=== PATIENT | female | born 1960 | race Caucasian/White ===

== ENCOUNTER → 2018-04-17 | Outpatient (REF) ==
--- NOTE | 2018-04-17 15:13 | EKG ---
[facility] PATIENT NAME: ANA MARIA KHANNA : [id number] MR: [id number] V: [id number] EXAM DATE: ORDERING PHYSICIAN: KERA ANTONIO TECHNOLOGIST: DIANA Test Reason : CP Blood Pressure : / mmHG Vent. Rate : 068 BPM Atrial Rate : 068 BPM P-R Int : 152 ms QRS Dur : 086 ms QT Int : 428 ms P-R-T Axes : 058 030 054 degrees QTc Int : 455 ms Normal sinus rhythm Diffuse, non-specific, T flattening No previous ECGs available Confirmed by BALDO ROQUE ([id number]) on 04/17/2018 6:17:03 PM Referred By: Lupe ANTONIO Confirmed By:BALDO ROQUE
== END ==
LOC: RESP 14:54
PROVIDERS: ATTEND Registered Nurse Psychiatric/Mental Health
DX: R07.9 Chest pain, unspecified (principal)
CPT/HCPCS: 93005

== ENCOUNTER → 2018-07-21 | Outpatient (CLI) | payer SELFPAY ==
--- NOTE | 2018-07-21 15:20 | RADIOLOGY IMAGING REPORT ---
FACILITY: PATIENT NAME: Adeline Beaulieu : 1960 MR: [id number] V: [id number] EXAM DATE: ORDERING PHYSICIAN: AL FABIAN TECHNOLOGIST: Location: [facility] [place] Patient: Adeline Beaulieu : 1960 Visit/Account:[id number] Date of Sevice: 07/21/2018 Left hip, two views Indication: Pain after injury Comparison: None available Findings: Mild sclerosis is noted involving the superior aspect of the acetabulum and a faint linear lucency is also noted. The hip is otherwise intact. Mild degenerative changes are present and a bob nt linear lucency is noted along the lateral aspect of the superior acetabulum.. Mild degenerative changes left hip joint noted The pelvis is otherwise intact. IMPRESSION: 1. Mild sclerosis is noted along the superior acetabulum on the left. In addition, a faint linear l ucency is noted along the lateral aspect of the superior acetabulum. While this may be related to un derlying degenerative change, subtle subacute fracture is not excluded. If clinically indicated, eit her CT or MRI may be of benefit. Results were discussed with AL FABIAN at 07/21/2018 3:16 PM. Report Dictated By: Rafael Johsnton at 07/21/2018 3:04 PM Report E-Signed By: Rafael Johnston at 07/21/2018 3:16 PM WSN:[id number]
== END ==
LOC: RAD 14:09
PROVIDERS: ATTEND Family Medicine
DX: G35 Multiple sclerosis (principal); M19.90 Unspecified osteoarthritis, unspecified site

== ENCOUNTER → 2019-07-02 | Outpatient (CLI) | payer SELFPAY ==
--- NOTE | 2019-07-02 15:20 | RADIOLOGY IMAGING REPORT ---
FACILITY: [facility] - [place] PATIENT NAME: Adeline Beaulieu : 1960 MR: [id number] V: [id number] EXAM DATE: ORDERING PHYSICIAN: TOBI GALLO TECHNOLOGIST: Location: Patient: Adeline Beaulieu : 1960 Visit/Account:[id number] Date of Sevice: 07/02/2019 FOOT 3 VIEWS RIGHT History: Right foot joint pain. Comparison study: None. Findings: There is no fracture involving the right foot. There are no significant findings of arthro jame. There is a plantar spur. IMPRESSION: 1. No fracture involving the right foot. 2. Plantar spur. Report Dictated By: Godfrey Vail MD at 07/02/2019 3:11 PM Report E-Signed By: Godfrey Vail MD at 07/02/2019 3:12 PM WSN:[id number]
== END ==
LOC: RAD 14:51
PROVIDERS: ATTEND Nurse Practitioner
DX: M77.31 Calcaneal spur, right foot (principal)